=== PATIENT | female | born 1990 | race Caucasian/White ===

== ENCOUNTER 2019-08-31 07:27 | Day surgery (SDC) | payer BC ==
[~2019-08-31] VITALS: Ht 172.7 cm; Wt 113.4 kg
[~2019-08-31 07:27] MED LIST: ALLEGRA ALLERG180 MG PO; BENADRYL25 MG PO; SPRINTEC1 EACH PO
--- NOTE | 2019-08-31 09:20 | NUR ---
08/31/19 0982 Garrison Abdi ORIENTED TO TIME AND SITUATION ON ENTRY TO PACU. DENIES NAUSEA OR PAIN.
--- NOTE | 2019-08-31 11:45 | OR ---
[facility] [address] [place], [place] [address] Signed DATE OF OPERATION: 08/31/2019 SURGEON: Cory Pizano MD PREOPERATIVE DIAGNOSIS: Ireland syndrome for surveillance, upper endoscopy and colonoscopy. POSTOPERATIVE DIAGNOSES: 1. Normal upper endoscopy, mild felinization of mid esophagus. 2. Normal colon to cecum. PROCEDURE: 1. Esophagogastroduodenoscopy with biopsy. 2. Total colonoscopy. ANESTHESIA: Intravenous sedation, fentanyl 250 mcg, Versed 14 mg total. INDICATIONS: This morbidly obese white woman, 250 pounds, BMI 38, is a patient of Dr. Hewitt. 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 She is here for colonoscopy as well as upper endoscopy. She understands the risks of bleeding, infection, perforation and wished to proceed. FINDINGS: Upper endoscopy showed no sign of polyps or abnormalities otherwise. She did have a subtle ring appearance of her midesophagus suggestive of the eosinophilic esophagitis, but she has no dysphagia or other issues. On colonoscopy, the prep was quite excellent. There was no sign of polyps or other abnormalities. DESCRIPTION OF PROCEDURE: The patient was brought to the endoscopy suite, given topical Hurricaine spray hypopharyngeal anesthesia and placed in lateral decubitus position. She was given intravenous sedation to a point of slurred speech and nystagmus. She required a fair amount of sedation and still was not heavily sedated with fentanyl 100 mcg and Versed 8 mg without problem, passed into the hypopharynx after placement of a bite block and vocal cords appeared normal. Scope was advanced to the esophagus without problem Electronically Signed By: CORY PIZANO MD 08/31/19 1145 PATIENT NAME: CHANDANA CRAMER OPERATIVE REPORT DATE OF : [birth year] REPORT #: [id number] PHYSICIAN: CORY PIZANO MD PCP: RAY HEWITT MD REPORT IS CONFIDENTIAL AND NOT TO BE RELEASED WITHOUT AUTHORIZATION [facility] [address] [place], [place] [address] Signed throughout its length. It appeared normal initially. Scope was advanced to the stomach, which was insufflated with air and rugal folds were normal. There was no sign of ulceration, polyps, or other abnormality. The pylorus was normal. Scope was passed through into the duodenum, which was normal. Scope was withdrawn. A biopsy taken of the antrum for both KUSHAL and pathologic testing. Retroflexed view showed a somewhat effaced flap valve. There was no sign of proximal polyps or other abnormalities. Scope was withdrawn to the distal esophagus, which was normal, withdrawn to the mid esophagus, which showed a felinization appearance, though she has no symptoms of eosinophilic esophagitis proper. Biopsies were taken of the mid esophagus on that basis. The scope was then withdrawn and removed. Plans were then made for colonoscopy. Additional sedation was given as the patient was essentially awake. Digital rectal examination was normal. An Olympus video colonoscope was passed in the rectum and manipulated throughout the colon ultimately intubating the cecum. The ileocecal valve and appendiceal orifice were normal. Scope was withdrawn from that point. Examination throughout showed no sign of abnormality. Retroflexed view was normal as well. The scope was removed and the patient was taken to the recovery room in good condition. CONCLUSION DIAGNOSES: Essentially normal upper endoscopy and colonoscopy. No evidence of polyps or signs of cancer. PLAN: She will return to the ongoing care of Dr. Hewitt. Current NCCN guidelines described consideration for gastric and small-bowel cancer screening with EGD and duodenoscopy every 2-3 years began at age 30-35. I do not think she would need upper endoscopy for at least 3 years. As regards, colonoscopy in a 2-year time interval would be reasonable. She is aware there are other associated cancerous with Ireland syndrome. Colon cancer risk is considered 20-80% of people, stomach cancer 1-13%; liver and bile duct cancers, 1-4%; urinary tract, 1-18%; small bowel cancer, 1-6% and pancreatic cancer, 1-6%. These numbers are based on NCCN guidelines. Cory Pizano MD JM/MODL /[id number] Electronically Signed By: CORY PIZANO MD 08/31/19 1145 PATIENT NAME: CHANDANA CRAMER OPERATIVE REPORT DATE OF : [birth year] REPORT #: [id number] PHYSICIAN: CORY PIZANO MD PCP: RAY HEWITT MD REPORT IS CONFIDENTIAL AND NOT TO BE RELEASED WITHOUT AUTHORIZATION [address] [address] Signed Copies: ~ Electronically Signed By: CORY PIZANO MD 08/31/19 1145 PATIENT NAME: CHANDANA CRAMER OPERATIVE REPORT DATE OF : [birth year] REPORT #: [id number] PHYSICIAN: CORY PIZANO MD PCP: RAY HEWITT MD REPORT IS CONFIDENTIAL AND NOT TO BE RELEASED WITHOUT AUTHORIZATION
--- NOTE | 2019-09-04 15:43 | PATH ---
[facility] [address] [place], [place] [address] Signed SPECIMEN(S): A ANTRUM/PYLORUS SPECIMEN(S): B MIDDLE ESOPHAGUS SPECIMEN SOURCE: A. ANTRUM/PYLORUS B. MIDDLE ESOPHAGUS CLINICAL HISTORY: EGD - normal. Colon - normal. Surveillance - mukherjee syndrome. MICROSCOPIC DESCRIPTION: A. Histologic sections of all submitted blocks are examined by light microscopy. These findings, together with the gross examination, support the pathologic diagnosis. B. Sections reveal a biopsy of esophageal mucosa composed of stratified squamous nonkeratinizing epithelium. There is a small amount of spongiosis present and a few plasma cells and lymphocytes in the mucosa. No eosinophils are seen. There is no evidence of malignancy or atypia. LJA:cml FINAL PATHOLOGIC DIAGNOSIS: A. Mucosa, antrum/pylorus, biopsy: - No microscopic pathologic diagnosis. - Negative for the presence of bacteria morphologically consistent with Helicobacter on HE stained sections. B. Mucosa, mid esophagus, biopsy: - No microscopic pathologic diagnosis. LJA:cml GROSS DESCRIPTION: Two specimens are received in two containers, labeled "Jenni, Gloria." A. The specimen, labeled "Gloria Arteaga, #1," and designated on the requisition "pylorus/antrum," is received in formalin and consists of two bello soft tissue fragments that measure 0.2 and 0.3 cm in greatest dimension. The specimen is entirely submitted in cassette (A1). B. The specimen, labeled "Gloria Arteaga, #2," and designated on the requisition "middle esophagus," is received in formalin and consists of two white-bello soft tissue fragments that measure 0.1 and 0.3 cm in greatest dimension. The specimen is entirely submitted in cassette (B1). FB (under the direct supervision of a pathologist) PATIENT NAME: GLORIA ARTEAGA PATHOLOGY DATE OF : 86 REPORT #: [id number] PHYSICIAN: MAYTE PATHOLOGY PCP: RAY SPARKS MD REPORT IS CONFIDENTIAL AND NOT TO BE RELEASED WITHOUT AUTHORIZATION [facility] [address] [place], [place] [address] Signed The Gross Description was prepared using a voice recognition system. The report was reviewed for accuracy; however, sound-alike word errors, addition and/or deletions may occur. If there is any question about this report, please contact Client Services. PERFORMING LABORATORY: The technical component was performed by [employer] [address] (Behavioral Health Counselor: Lauren Cruz MD; CLIA# [id number]). Professional [facility] by [facility], [address] [address] (CLIA# [id number]). Diagnostician: Flakito Mathews MD Pathologist Electronically Signed 09/04/2019 Copies: ~ PATIENT NAME: GLORIA ARTEAGA PATHOLOGY DATE OF : 86 REPORT #: [id number] PHYSICIAN: MAYTE HOBBS PCP: RAY SPARKS MD REPORT IS CONFIDENTIAL AND NOT TO BE RELEASED WITHOUT AUTHORIZATION
== END 2019-08-31 09:45 | disposition home or self-care (01) ==
LOC: OPS 07:27 → DS 07:27 → OPS 08:00 → DS 08:00 → OPS 09:45
PROVIDERS: Surgery
PROC: 0DJD8ZZ Inspection of Lower Intestinal Tract, Via Natural or Artificial Opening Endoscopic (ICD-10-PCS; 2019-08-31)
PROC: 0DB28ZX Excision of Middle Esophagus, Via Natural or Artificial Opening Endoscopic, Diagnostic (ICD-10-PCS; principal; 2019-08-31 08:00)
PROC: 0DB78ZX Excision of Stomach, Pylorus, Via Natural or Artificial Opening Endoscopic, Diagnostic (ICD-10-PCS; 2019-08-31 08:00)
DX: Z12.11 Encounter for screening for malignant neoplasm of colon (principal); E66.01 Morbid (severe) obesity due to excess calories; Z15.09 Genetic susceptibility to other malignant neoplasm; K22.8 Other specified diseases of esophagus; Z68.38 Body mass index [BMI] 38.0-38.9, adult; Z88.8 Allergy status to other drugs, medicaments and biological substances; Z98.890 Other specified postprocedural states; Z90.49 Acquired absence of other specified parts of digestive tract; Z80.0 Family history of malignant neoplasm of digestive organs
CPT/HCPCS: 84703; 99153; G0500; J2250; J3010; J7121

== ENCOUNTER 2021-07-24 16:03 | Inpatient (IN) | payer OTHER ==
--- NOTE | 2021-07-25 01:02 | PR ---
[facility] [address] [facility] [place], [place] [address] Signed Progress Notes IP Datetime Report Generated by CPBjorn: 07/25/2021 01:02 PROGRESS NOTES: [id number] Impression: Reassuring Heart Rate Procedures: Intrauterine Pressure Catheter; Scalp Electrode Plan: Continue Present Management VITAL SIGNS: [id number] Vital Signs: Reviewed; Within Normal Limits EXAM: [id number] Dilatation: 4.0 Effacement: 80 Station: -2 MEMBRANES: [id number] Nitrazine: Positive Amniotic Fluid Color: Clear Comments: Much more uncomfortable but no real change in her exam even with pitocin. Will place IUPC and FSE to monitor her more easily with her movements. FETUS A: [id number] FHR Baseline: 140 Variability: Moderate 6-25bpm Accelerations: 15X15 Decelerations: None FHR Category: Category I Presentation: Vertex Comments on Fetus A: No evidence of metabolic acidosis FETUS B: [id number] Signing Physician: Sunita Hewitt MD Copies: ~ *Electronically Signed* 07/25/21 010 SUNITA HEWITT MD PATIENT NAME: CHANDANA LLOYD PROGRESS NOTE DATE OF : 86 PHYSICIAN: SUNITA HEWITT MD RPT #: [id number] REPORT IS CONFIDENTIAL AND NOT TO BE RELEASED WITHOUT AUTHORIZATION
--- NOTE | 2021-07-25 06:16 | PR ---
[facility] [address] [facility] [place], [place] [address] Signed Progress Notes IP Datetime Report Generated by CPN: 07/25/2021 06:16 PROGRESS NOTES: [id number] Impression: Normal Progression of Labor Procedures: Scalp Electrode; Sterile Vag Exam Plan: Continue Present Management VITAL SIGNS: [id number] Vital Signs: Reviewed; Within Normal Limits EXAM: [id number] Dilatation: 7.0 Effacement: 95 Station: -2 MEMBRANES: [id number] Nitrazine: Positive Amniotic Fluid Color: Clear Comments: Progressing but not able to see heart rate consistently. Will replace FSE and continue close observation. FETUS A: [id number] FHR Baseline: 140 Variability: Moderate 6-25bpm Accelerations: 15X15 Decelerations: None FHR Category: Category I Presentation: Vertex Comments on Fetus A: No evidence of metabolic acidosis FETUS B: [id number] Signing Physician: Sunita Hewitt MD Copies: ~ *Electronically Signed* 07/25/21615 SUNITA HEWITT MD PATIENT NAME: CHANDANA LLOYD PROGRESS NOTE DATE OF : 86 PHYSICIAN: SUNITA HEWITT MD RPT #: [id number] REPORT IS CONFIDENTIAL AND NOT TO BE RELEASED WITHOUT AUTHORIZATION
--- NOTE | 2021-07-25 06:25 | PR ---
[facility] [address] [place], [place] [address] Signed Progress Notes IP Datetime Report Generated by CPN: 07/25/2021 06:25 PROGRESS NOTES: [id number] Impression: Non-reassuring Heart Rate Procedures: Amnio Infusion Other Procedures: subQ terb Plan: Continue Present Management VITAL SIGNS: [id number] Vital Signs: Reviewed; Within Normal Limits EXAM: [id number] Dilatation: 7.0 Effacement: 95 Station: -2 MEMBRANES: [id number] Nitrazine: Positive Amniotic Fluid Color: Clear Comments: Having recurrent variables now that heart tones are reading well. Will give terb now to decrease her contractions (pit off for quite some time) and begin amnioinfusion to see if decels can be mitigated. FETUS A: [id number] FHR Baseline: 140 Variability: Moderate 6-25bpm Accelerations: 15X15 Decelerations: None FHR Category: Category I Presentation: Vertex Comments on Fetus A: No evidence of metabolic acidosis FETUS B: [id number] Signing Physician: Sunita Hewitt MD Copies: ~ *Electronically Signed* 07/25/21624 SUNITA HEWITT MD PATIENT NAME: CHANDANA LLOYD PROGRESS NOTE DATE OF : 86 PHYSICIAN: SUNITA HEWITT MD RPT #: [id number] REPORT IS CONFIDENTIAL AND NOT TO BE RELEASED WITHOUT AUTHORIZATION
--- NOTE | 2021-07-25 09:14 | PR ---
[facility] [address] [facility] [place], [place] [address] Signed Progress Notes IP Datetime Report Generated by CPN: 07/25/2021 09:14 PROGRESS NOTES: [id number] Impression: Normal Progression of Labor; Reassuring Heart Rate Procedures: Sterile Vag Exam Other Procedures: subQ terb Plan: Anticipate Vaginal Delivery Other Plans: begin pushing VITAL SIGNS: [id number] Vital Signs: Reviewed; Within Normal Limits EXAM: [id number] Dilatation: 8.0 Effacement: 90 Station: -1 MEMBRANES: [id number] Nitrazine: Positive Amniotic Fluid Color: Clear ROM Note: Amnioinfusion turned off d/t scant output Comments: Progressing. Will start pushing. FETUS A: [id number] FHR Baseline: 140 Variability: Moderate 6-25bpm Accelerations: 15X15 Decelerations: None FHR Category: Category I Presentation: Vertex Comments on Fetus A: No evidence of metabolic acidosis FETUS B: [id number] Signing Physician: Sunita Hewitt MD Copies: ~ *Electronically Signed* 07/25/21913 SUNITA HEWITT MD PATIENT NAME: CHANDANA LLOYD PROGRESS NOTE DATE OF : 86 PHYSICIAN: SUNITA HEWITT MD RPT #: [id number] REPORT IS CONFIDENTIAL AND NOT TO BE RELEASED WITHOUT AUTHORIZATION
--- NOTE | 2021-07-26 09:57 | PR ---
[facility] [address] [facility] [place] [address] Signed PP Progress Notes Datetime Report Generated by JADA: 07/26/2021 09:57 SUBJECTIVE: [id number] Pain: Within Normal Limits Vital Signs: [id number] Vital Signs: Reviewed; Within Normal Limits Cardiovascular: Not Done Respiratory: Not Done Abdomen/Uterus: Abnormal Lochia: Normal Vulva/Perineum: Not Done Breasts: Not Done CVA Tenderness: Not Done Extremities: Normal Incision: Not Applicable Progress: Abnormal Exam Comments: Fundus firm, NT @ U-2. H/H 10.6/32.2, WBC 16.3,plat 246k IMPRESSION/PLAN/PROCEDURES: [id number] Impression: Normal Progression; Difficulties Plan: Consult Procedures: None Progress Notes: Doing well other than breast feeding difficulties. Will work on this today with probable discharge tomorrow. Signing Physician: Sunita Hewitt MD Copies: ~ *Electronically Signed* 07/26/21 0957 SUNITA HEWITT MD PATIENT NAME: CHANDANA LLOYD PROGRESS NOTE DATE OF : 86 PHYSICIAN: SUNITA HEWITT MD RPT #: [id number] REPORT IS CONFIDENTIAL AND NOT TO BE RELEASED WITHOUT AUTHORIZATION
--- NOTE | 2021-07-27 06:49 | PR ---
[facility] [address] [facility] [place] [address] Signed PP Progress Notes Datetime Report Generated by CPN: 07/27/2021 06:49 SUBJECTIVE: [id number] Pain: Within Normal Limits Vital Signs: [id number] Vital Signs: Reviewed; Within Normal Limits Cardiovascular: Not Done Respiratory: Not Done Abdomen/Uterus: Abnormal Lochia: Normal Vulva/Perineum: Not Done Breasts: Not Done CVA Tenderness: Not Done Extremities: Normal Incision: Not Applicable Progress: Abnormal Exam Comments: Fundus firm, NT @ U-2 IMPRESSION/PLAN/PROCEDURES: [id number] Impression: Normal Progression Plan: Discharge Procedures: None Progress Notes: Doing well though still issues with breast feeding. I suspect the baby may need to stay secondary to breast feeding issues. Signing Physician: Sunita Hewitt MD Copies: ~ *Electronically Signed* 07/27/21 0649 SUNITA HEWITT MD PATIENT NAME: CHANDANA LLOYD PROGRESS NOTE DATE OF : [birth year] PHYSICIAN: SUNITA HEWITT MD RPT #: [id number] REPORT IS CONFIDENTIAL AND NOT TO BE RELEASED WITHOUT AUTHORIZATION
== END 2021-07-27 13:55 | disposition home or self-care (01) | DRG 807 ==
LOC: FBCO 16:03 → FBC 17:28
PROVIDERS: ADMIT Obstetrics & Gynecology; ATTEND Obstetrics & Gynecology
PROC: 10E0XZZ Delivery of Products of Conception, External Approach (ICD-10-PCS; principal; 2021-07-25)
PROC: 3E0R3BZ Introduction of Anesthetic Agent into Spinal Canal, Percutaneous Approach (ICD-10-PCS; 2021-07-25)
PROC: 00HU33Z Insertion of Infusion Device into Spinal Canal, Percutaneous Approach (ICD-10-PCS; 2021-07-25)
PROC: 0HQ9XZZ Repair Perineum Skin, External Approach (ICD-10-PCS; 2021-07-25)
DX: O42.02 Full-term premature rupture of membranes, onset of labor within 24 hours of rupture (principal); Z37.0 Single live birth; Z3A.37 37 weeks gestation of pregnancy; O70.0 First degree perineal laceration during delivery; Z20.822 Contact with and (suspected) exposure to COVID-19; Z79.899 Other long term (current) drug therapy; Z98.890 Other specified postprocedural states; O99.214 Obesity complicating childbirth; E66.9 Obesity, unspecified
CPT/HCPCS: 36415; 84112; 85027; 86850; 86900; 86901; 87502; A9270; C9803; J2540; J2590; J2795; J3010; J7121; U0003

== ENCOUNTER 2022-09-24 10:47 | Day surgery (SDC) | payer OTHER ==
[2022-09-20 10:24] VITALS: BP 122/73
[~2022-09-24] VITALS: Ht 172.7 cm; Wt 127.3 kg
[~2022-09-24 10:47] MED LIST changes: +ZOLOFT50 MG PO
[2022-09-24 11:35] VITALS: BP 143/83
--- NOTE | 2022-09-24 12:54 | NUR ---
09/24/22 1254 Sheets,Jennifer 1246 PT ARRIVED TO PACU ON 2L VIA NC, PT WAKES EASILY AND DENIES PAIN AND NAUSEA.
[2022-09-24 13:07] VITALS: BP 131/71
--- NOTE | 2022-09-24 14:14 | OR ---
[facility] [address] [place], [place] [address] Signed DATE OF OPERATION: 09/24/2022 SURGEON: Cory Pizano MD PREOPERATIVE DIAGNOSIS: [place] syndrome. POSTOPERATIVE DIAGNOSES: 1. Essentially normal upper endoscopy, mild gastritis. 2. No evidence of polyps of colon. PROCEDURES: 1. Esophagogastroduodenoscopy with biopsy. 2. Total colonoscopy to cecum. ANESTHESIA: Intravenous sedation; propofol infusion, Samantha Krishnan CRNA INDICATIONS: This 32-year-old white woman is a patient of Dr. Sunita Hewitt and is known to have [place] syndrome, undergoing upper endoscopy and colonoscopy in April of 2020. On previous evaluation, she had no evidence of polyps or other signs of malignancy. NCCN guidelines prescribe gastric and small bowel screening with EGD and duodenostomy every 2 to 3 years, colonoscopy in a 1 to 2 year timeframe. She feels that she is "behind" on screening colonoscopy and upper endoscopy. Notably, she required a fair amount of IV fentanyl and Versed on previous endoscopic evaluation and on that basis propofol infusional sedation is recommended at this time. She understands the risk of bleeding, infection, and perforation related to upper endoscopy and colonoscopy and wished to proceed. FINDINGS: Upper endoscopy was essentially normal. There is certainly no polyps of the stomach or duodenum. She did have mild antral gastritis. Biopsies were obtained. CLOtest was negative. On colonoscopy, the prep was good. Complete colonoscopy was undertaken to the cecum without question. She had no evidence of polyps or other abnormality. Of special note, she did have a high tolerance for propofol infusional sedation; future Electronically Signed By: CORY PIZANO MD 09/24/22 1414 PATIENT NAME: CHANDANA LLOYD OPERATIVE REPORT DATE OF : 86 REPORT #: [id number] PHYSICIAN: CORY PIZANO MD PCP: SUNITA HEWITT MD REPORT IS CONFIDENTIAL AND NOT TO BE RELEASED WITHOUT AUTHORIZATION [facility] [address] [place], [place] [address] Signed endoscopic evaluation would be best managed with propofol, it would appear. DESCRIPTION OF PROCEDURE: The patient was brought to the endoscopy suite and placed in the lateral decubitus position after undergoing topical lidocaine hypopharyngeal anesthesia. She was given intravenous sedation with propofol infusional technique by the corn cooker. A bite block was placed. An Olympus video upper endoscope was passed in the hypopharynx. The vocal cords were normal. Scope was advanced to the esophagus, throughout its length it was normal. The scope was advanced to the stomach which was insufflated with air. There was no sign of abnormality including no polyps. Pylorus was normal and scope was passed through into the duodenal which was normal to the 4th portion. The scope was withdrawn and reexamination of the stomach showed some mild antral gastritis. On that basis, biopsies were obtained for both pathology and CLOtest. Retroflexed view was reasonably normal. Scope was withdrawn examining the distal esophagus which was entirely normal. The remaining esophagus was normal. Additional sedation was given, noting that the patient had high tolerance for propofol infusional sedation. Subsequent in the course of the procedure, ketamine was administered, it is noted. Digital rectal examination was performed which was normal. An Olympus video colonoscope was passed in the rectum and manipulated throughout the colon and ultimately intubating the cecum itself. The ileocecal valve and appendiceal orifice were normal. The scope was withdrawn and examination showed no sign of polyps or diverticular formation. Retroflexed view of the rectum was normal. Scope was removed and the patient was taken to the recovery room in good condition. CONCLUDING DIAGNOSES: 1. Normal upper endoscopy including stomach, esophagus and duodenum. 2. Normal colon. No evidence of polyps. PLAN: Based on current guidelines, colonoscopy 1 to 2 years would be appropriate, 2 to 3 years for upper endoscopy, sooner of course if either upper or lower gastrointestinal symptoms should occur. She will return to the ongoing care of Dr. Hewitt. Cory Pizano MD Electronically Signed By: CORY PIZANO MD 09/24/22 1414 PATIENT NAME: CHANDANA LLOYD OPERATIVE REPORT DATE OF : 86 REPORT #: [id number] PHYSICIAN: CORY PIZANO MD PCP: SUNITA HEWITT MD REPORT IS CONFIDENTIAL AND NOT TO BE RELEASED WITHOUT AUTHORIZATION [facility] [address] [place] [address] Signed SHERRY/REGGIE /[id number] cc: Sunita Hewitt MD Copies: SUNITA HEWITT MD ~ Electronically Signed By: CORY PIZANO MD 09/24/22 1414 PATIENT NAME: CHANDANA LLOYD OPERATIVE REPORT DATE OF : 86 REPORT #: [id number] PHYSICIAN: CORY PIZANO MD PCP: SUNITA HEWITT MD REPORT IS CONFIDENTIAL AND NOT TO BE RELEASED WITHOUT AUTHORIZATION
--- NOTE | 2022-09-29 15:15 | PATH ---
[facility] [address] [facility] [place] [place] [address] Signed SPECIMEN(S): A ANTRUM/PYLORUS BIOPSY SPECIMEN SOURCE: A. ANTRUM/PYLORUS BIOPSY CLINICAL HISTORY: Preop: Ireland syndrome, family history Ireland syndrome, reflux. Postop EGD: Mild gastritis. FINAL PATHOLOGIC DIAGNOSIS: Antrum/pylorus biopsy: - Benign gastric type mucosa with mild superficial chronic gastritis. - Helicobacter pylori immunostain is negative for organisms. JVR:mfr:C2NR MICROSCOPIC EXAMINATION: A Helicobacter pylori immunostain is performed with appropriate positive and negative controls on block A1 and is negative for organisms. Histologic sections of all submitted blocks are examined by light microscopy. These findings, together with the gross examination, support the pathologic diagnosis. GROSS DESCRIPTION: The specimen, labeled and designated "Nicole, 1" and designated on the requisition "antrum/pylorus biopsy," is received in formalin and consists of two bello soft tissue fragments, both 0.4 cm. Entirely submitted in (A1). AC (under the direct supervision of a pathologist) The Gross Description was prepared using a voice recognition system. The report was reviewed for accuracy; however, sound-alike word errors, addition and/or deletions may occur. If there is any question about this report, please contact Client Services. ADDITIONAL NOTES: Immunohistochemical and/or in situ hybridization studies were performed on this case with the appropriate positive controls that react as expected. This test was developed and its performance characteristics determined by [employer]. It has not been cleared or approved by the U.S. Food and Drug Administration. The FDA has determined that such clearance or approval is not necessary. This test is used for clinical purposes. It should not be regarded PATIENT NAME: CHANDANA LLOYD PATHOLOGY DATE OF : 86 REPORT #: [id number] PHYSICIAN: MAYTE PATHOLOGY PCP: RAY SPARKS MD REPORT IS CONFIDENTIAL AND NOT TO BE RELEASED WITHOUT AUTHORIZATION [facility] [address] [facility] [place] [place] [address] Signed as investigational or for research. [facility] is certified under the Clinical Laboratory Improvement Amendments of 1988 (CLIA) as qualified to perform high complexity clinical laboratory testing. This assay has not been validated for specimens that have been decalcified. PERFORMING LABORATORY: Technical component was performed by [facility], [address] [place] [id number] (CLIA# [id number]). Professional interpretation was performed by [facility], [address] [place] [id number] (CLIA#: [id number]). Diagnostician: Earl Monroy MD Pathologist Electronically Signed 09/29/2022 Copies: ~ PATIENT NAME: CHANDANA LLOYD PATHOLOGY DATE OF : [birth year] REPORT #: [id number] PHYSICIAN: MAYTE PATHOLOGY PCP: RAY SPARKS MD REPORT IS CONFIDENTIAL AND NOT TO BE RELEASED WITHOUT AUTHORIZATION
== END 2022-09-24 13:18 | disposition home or self-care (01) ==
LOC: DS 10:47 → OPS 10:47 → DS 11:00 → OPS 11:00
PROVIDERS: ATTEND Surgery
PROC: 0DB68ZX Excision of Stomach, Via Natural or Artificial Opening Endoscopic, Diagnostic (ICD-10-PCS; 2022-09-24)
PROC: 0DJD8ZZ Inspection of Lower Intestinal Tract, Via Natural or Artificial Opening Endoscopic (ICD-10-PCS; principal; 2022-09-24 11:50)
PROC: 0DB98ZX Excision of Duodenum, Via Natural or Artificial Opening Endoscopic, Diagnostic (ICD-10-PCS; 2022-09-24 11:50)
DX: Z12.11 Encounter for screening for malignant neoplasm of colon (principal); Z80.0 Family history of malignant neoplasm of digestive organs; Z15.09 Genetic susceptibility to other malignant neoplasm; E66.01 Morbid (severe) obesity due to excess calories; Z68.41 Body mass index [BMI] 40.0-44.9, adult; K29.70 Gastritis, unspecified, without bleeding
CPT/HCPCS: 00813; 36415; 84703; J2704; J3490